=== PATIENT | female | born 1980 | race Caucasian/White ===

== ENCOUNTER → 2020-04-27 | Outpatient (CLI) | payer BC ==
[~2020-04-27] MED LIST: CIPRO 250MG TA250 MG PO; FLAGYL500 MG PO; FLINTSTONES1 CTB PO; LORTAB 5/500 501 TAB PO; MOTRIN 800800 MG/TAB PO; PENTASA500 MG PO; PERCOCET 325 MG1 TA2 PO; PHENERGAN 25 TA25 MG PO; PHENERGAN25 MG RC; PRILOTC; [UNRECOGNIZED DRUG - OTHER]
== END ==
LOC: MC.RAD 16:41
DX: Z12.31 Encounter for screening mammogram for malignant neoplasm of breast (principal)